=== PATIENT | female | born 1980 | race Caucasian/White ===

== ENCOUNTER 2017-05-19 16:34 | Emergency (ER) | payer MEDICAID, SELFPAY ==
[2017-05-19 16:36] VITALS: BP 158/91; PULSE 94; RESP 20; TEMP 36.9; O2SAT 99; BMI 23.3
--- NOTE | 2017-05-19 19:11 | ED.DCSUM_ITS ---
- ER Visit Summary Date of Service: 05/19/17 Chief Complaint: Panic attack and anxiety History of Present Illness: The patient is a 37 F presents with 3 days of anxiety. She states that she recently had a court date. Since that time she has been feeling exhausted but is having difficulty sleeping shouting out at night. She also complains of some chest tightness. She does have a history of prior similar symptoms. No recent medical illness. Physical Examination: Afebrile vitals are normal Moist mucous membranes Heart regular rate and rhythm Lungs are clear Abdomen soft Alert Patient has pressured speech Patient is not actively suicidal she does not feel she is at risk of harming herself she has no homicidal ideation Test Results: Not indicated Emergency Department Course and Treatment: Does not mandate any criteria for involuntary psychiatric hospitalization. I did advise that I feel she would benefit from seeing the counseling center to learn coping mechanisms and for therapy. The patient does not believe that this will help her and states that she just wants a prescription for medications. She was given a prescription for Vistaril but I again advised that she follow-up with the counseling center. Treatment Plan: [] Disposition: Discharge Impression: Anxiety This note was generated with [employer] dictation software. It may contain incorrect words, spelling, and punctuation that were not noted in review of the chart prior to signing ED Disposition - Plan for ED Patient: Chief Complaint: Anxiety Referrals: [facility],Out of [Primary Care Provider] -
--- NOTE | 2017-05-19 19:12 | ED.DEP ---
ED Disposition - Plan for ED Patient: Chief Complaint: Anxiety Instructions: ED Stress React, ED Panic Attack Prescriptions: HydrOXYzine BUZZ [Vistaril] 50 mg PO TID PRN PRN #30 cap PRN Reason: Anxiety Referrals: [facility],Out of [Primary Care Provider] - Counseling,Center [GROUP OF PHYSICIANS] -
[2017-05-19 19:20] VITALS: BP 112/67; PULSE 71; RESP 16; O2SAT 98
== END 2017-05-19 19:28 | disposition home or self-care (01) ==
LOC: ED 19:19
PROVIDERS: Emergency Provider Emergency Medicine
DX: F41.9 Anxiety disorder, unspecified (principal); I10 Essential (primary) hypertension; Z79.899 Other long term (current) drug therapy
CPT/HCPCS: 99282

== ENCOUNTER 2017-05-23 00:31 | Emergency (ER) | payer MEDICAID, SELFPAY ==
[2017-05-23 00:33] VITALS: BP 162/106; PULSE 99; RESP 18; TEMP 36.6; O2SAT 98; BMI 24.2
--- NOTE | 2017-05-23 01:13 | ED.DCSUM_ITS ---
- ER Visit Summary Date of Service: 05/23/17 Chief Complaint: Tripped and fell with bilateral knee abrasions. History of Present Illness: The patient is a 37 F states that she tripped and fell outside Wednesday night. Has abrasions to both knees. Is able to walk. Denies other injuries. Did not hit her head. She has never had surgeries to either knee. Physical Examination: Well-appearing young female. Vital signs are stable and afebrile. HEENT exam atraumatic. Pupils round reactive light. Neck nontender. Back nontender. Lungs clear to auscultation bilaterally. Heart regular rate and rhythm no murmur. Chest nontender. Abdomen soft nontender. Pelvic girdle intact. Extremities she is moving all 4. They are neurovascularly intact. Full range of motion. No bony deformities. Bilateral centrifugal machine tender strength. Bilateral dorsi plantar flexion. She has full flexion- extension of both knees. Extensor mechanisms are intact. She has abrasions to both knees and minimal swelling. There are no gross bony deformities. There are no signs of internal derangement. The ligaments of the knee are intact with good endpoints. Logic exam is normal. Test Results: None Emergency Department Course and Treatment: She will be treated for knee contusions and abrasions. Treatment Plan: Both knees well be cleaned and dressed. Motrin for pain. Ice both knees. Disposition: Discharge Impression: Fall with bilateral knee abrasions and contusions This note was generated with [employer] dictation software. It may contain incorrect words, spelling, and punctuation that were not noted in review of the chart prior to signing ED Disposition - Plan for ED Patient: Chief Complaint: Lower Extremity Injury Referrals: [facility] ,Out of [Primary Care Provider] -
--- NOTE | 2017-05-23 01:13 | ED.DEP ---
ED Disposition - Plan for ED Patient: Disposition: Home or Assisted Living Chief Complaint: Lower Extremity Injury Instructions: ED Contusion Lower Ext Referrals: [facility],Out of [Primary Care Provider] - 1 Week if not improving Additional Instructions: Ice to both knees to decrease pain and swelling. Motrin and Tylenol for pain. Keep the wounds clean and apply antibiotic ointment daily.
[2017-05-23] MEDS: Ibuprofen 400 MG Tablet 800 MG PO (01:25)
== END 2017-05-23 01:26 | disposition home or self-care (01) ==
PROVIDERS: Emergency Provider Emergency Medicine
DX: S80.212A Abrasion, left knee, initial encounter (principal); S80.211A Abrasion, right knee, initial encounter; S80.02XA Contusion of left knee, initial encounter; S80.01XA Contusion of right knee, initial encounter; W01.0XXA Fall on same level from slipping, tripping and stumbling without subsequent striking against object, initial encounter; Y93.9 Activity, unspecified; Y92.9 Unspecified place or not applicable; I10 Essential (primary) hypertension; Z86.59 Personal history of other mental and behavioral disorders; Z79.899 Other long term (current) drug therapy
CPT/HCPCS: 99283

== ENCOUNTER 2017-12-29 14:12 | Emergency (ER) | payer MEDICAID, SELFPAY ==
[2017-12-29 14:13] VITALS: BP 117/79; PULSE 127; RESP 16; TEMP 36.9; O2SAT 99; BMI 18.8
[2017-12-29] MEDS: Naproxen 500 MG Tablet PO (14:42)
--- NOTE | 2017-12-29 14:42 | ED.VISSUMM ---
- ER Visit Summary Date of Service: 12/29/17 Chief Complaint: [] Pain to the left lower quadrant for a few days after sleeping awkwardly on multiple pillows History of Present Illness: The patient is a 37 F [] she indicates the other day she stepped awkwardly on multiple pillows she indicates she was actually up quite a bit pillows behind her she indicates she turned in the bed torquing her body and since that time has had pain to the left lower abdomen musculature. She indicates the pain is much worse if he tries to move her left leg in any way primarily flexing and extending at the hip. She suffered no direct trauma. She actually denies abdominal pain rather points to the superficial musculature complaining of discomfort here. She was not sick in any way before this episode occurred as above. Her bowel bladder habits have been generally unremarkable other than noting slightly constipated her urinary habits are normal she has no GI history denies being as she has not had sexual intercourse for over a year she has no other complaints. She sits perfectly still she feels better vascular move her leg she has increasing pain to the left lower abdomen Physical Examination: [] Her vital signs are within normal limits she is resting comforting the bed however any movement of the leg she bends forward with her torso because her pain in the left lower abdominal region musculature. When she is lying flat Her left lower abdomen there is no pain the abdomen is actually soft and nontender, there is no bruising or contusion to any part of her body, her back is unremarkable her lungs are clear heart tones are normal she has full range of motion of all 4 extremities. When I range her hip she has no specific hip pain just complains of pain to the musculature as above. When she stands and walks she is able to walk when she flexes her hip she complains of pain to this area Test Results: [] Emergency Department Course and Treatment: [] A long conversation with the patient reviewed her history and differential diagnosis of explained her that given her complaints and her history and physical this is likely musculoskeletal strain I explained we could do a workup with labs CT etc. she deferred that saying again she is quite convinced this is related to musculoskeletal strain related to the above history. At this time she will be started on Naprosyn ice the area and she has an appointment your physicians tomorrow and will return for change in symptoms Treatment Plan: [] Disposition: [] Home stable Impression: [] Lower abdominal musculature strain related to sleeping awkwardly on multiple pillows as above This note was generated with [employer] dictation software. It may contain incorrect words, spelling, and punctuation that were not noted in review of the chart prior to signing ED Disposition - Plan for ED Patient: Chief Complaint: Lower Extremity Injury Referrals: [facility] Doctor,Out of [Primary Care Provider] -
--- NOTE | 2017-12-29 14:45 | ED.DEP ---
ED Disposition - Plan for ED Patient: Chief Complaint: Lower Extremity Injury Instructions: ED Contusion Hip, ED Contusion Soft Tissue Prescriptions: Naproxen [Naprosyn] 500 mg PO BID PRN #20 tab Referrals: [facility],Out of [Primary Care Provider] -
== END 2017-12-29 15:03 | disposition home or self-care (01) ==
LOC: ED 14:57
PROVIDERS: Emergency Provider Emergency Medicine
DX: S39.011A Strain of muscle, fascia and tendon of abdomen, initial encounter (principal); X50.1XXA Overexertion from prolonged static or awkward postures, initial encounter; Y93.9 Activity, unspecified; Y92.9 Unspecified place or not applicable; K59.00 Constipation, unspecified
CPT/HCPCS: 99283

== ENCOUNTER 2018-01-06 14:31 | Observation (INO) | payer MEDICAID, SELFPAY ==
[2018-01-06] VITALS (8 sets, daily range): BP systolic 118–133; BP diastolic 63–94; PULSE 97–122; RESP 16–20; TEMP 36.6–37.2; O2SAT 98–100; BMI 20.9
--- NOTE | 2018-01-06 15:17 | VDLE_ITS ---
[id number] VL^VDUL^Venous Duplex US- Unilateral [id number] [facility] Venous Doppler [address] [place] [address] Ordering Physician: Danny Alexandra TAG_ENDED [facility] Name: TATYANA FRANCISCO I Study Date: 01/06/2018 03:35 PM Patient Location: ED : 1980 Gender: Female Age: 37 yrs [facility]ENDED Reason For Study: LEG PAIN AND SWELLING RIGHT LEFT CFV is compressible, spontaneous, phasic, GSV is normal. competent and demonstrates normal CFV, FV, POP V, T/P trunk, PTV and PER V are augmentation. dilated and non-compressible with Procedure intraluminal echoes and absent color Exam performed portable in ED. flow/doppler signal. A preliminary report was called and/or faxed to Dr. Alexandra. <> Interpretation Summary Acute deep vein thrombosis is noted in the left common femoral vein. Acute deep vein thrombosis is noted in the left femoral vein. Acute deep vein thrombosis is noted in the left popliteal vein. Acute deep vein thrombosis is noted in the left tibio-peroneal trunk. Acute deep vein thrombosis is noted in the left posterior tibial vein. Acute deep vein thrombosis is noted in the left peroneal vein. The left greater saphenous vein appears patent and compressible segmentally. [facility] Ordering Physician: Danny Alexandra Performed By: Sharlene Alvarez RVT
--- NOTE | 2018-01-06 15:18 | EKG12_ITS ---
Test Reason : Blood Pressure : / mmHG Vent. Rate : 106 BPM Atrial Rate : 106 BPM P-R Int : 136 ms QRS Dur : 072 ms QT Int : 324 ms P-R-T Axes : 057 009 018 degrees QTc Int : 430 ms Sinus tachycardia Otherwise normal ECG Confirmed by JUAN DUARTE ([id number]), electronic news gathering editor WAN MELARA ([id number]) on 01/11/2018 8:56:39 AM Referred By: MARIANA Confirmed By:JUAN DUARTE
--- NOTE | 2018-01-06 15:56 | CT_ITS ---
STUDY: CTA CHEST REASON FOR EXAM: Female, 37 years old. Shortness of breath. Leg edema and pain. RADIATION DOSAGE (If Supplied By Facility): CTDIvol = ( 4.57 ) mGy, DLP = ( 175.48 ) mGycm TECHNIQUE: The examination was performed with the intravenous administration of 100mL ml of Isovue 370 contrast material. Post-processing of the angiographic/MIP images was performed. Individualized dose optimization techniques were used for this CT. COMPARISON: None. FINDINGS: Normal enhancement of the main pulmonary artery and right and left pulmonary arteries. Normal enhancement of the bilateral peripheral pulmonary arteries. There is no demonstrated pulmonary embolism. Normal thoracic aorta and visualized great vessels. There is no demonstrated aortic dissection. Normal heart and pericardium. There is no pericardial or pleural effusion. Normal mediastinum. Normal hilar regions. Normal visualized trachea and bronchi. The lungs are well expanded. Normal pulmonary parenchyma. Normal pleura. There are benign bilateral axillary lymph nodes. Normal osseous structures. No acute abnormality demonstrated in the visualized upper abdomen. Possible hepatic steatosis. CT/CTA Chest W/WO Contrast IMPRESSION: Normal CTA chest examination, without a demonstrated pulmonary embolism or arterial dissection. Electronically Signed: Taras Vivas MD at 16:45 EDT Tel , Service support ,
[2018-01-06 15:59] LABS: Absolute Lymphocyte Count 2.34 X10^3/ul (0.83-4.51); Absolute Neutrophil Count 7.3 X10^3/uL (2.0-7.7); Anion Gap 6 (5-15); BUN 17 mg/dL (7-18); BUN/Creat Ratio 27.2 RATIO (10-20); Basophil# 0.03 X10^3/uL; Basophil% 0.3 % (0-1); Calcium,Total 9.1 mg/dL (8.5-10.1); Chloride 106 mmol/L (98-107); Creatinine, Serum 0.63 mg/dL (0.55-1.02); EST Glomerular Filtration Rate 114 mL/min (>60); Eosinophil# 0.32 X10^3/uL; Est Glom Filt Rate - Afr Amer 137 mL/min (>60); Estimated Creatinine Clearance 120.63 ml/min; Glucose 88 mg/dL (74-106); Hematocrit 33.6 % (37-47); Hemoglobin 10.6 g/dl (12.0-15.0); Lymphocyte # 2.34 X10^3/ul (4.0); Lymphocyte % 21.9 % (19-41); Mean Corp Hgb Conc 31.5 g/gl (32-36); Mean Corpuscular Hgb 29.6 pg (27.0-32.0); Mean Corpuscular Volume 93.9 fL (81-99); Mean Platelet Vol. 8.8 fl (6.2-12.0); Monocyte# 0.63 X10^3/uL; Monocyte% 5.9 % (0-10); Neutrophil # 7.32 X10^3/uL (2.7-7.7); Neutrophil % 68.3 % (47-70); Platelet Count 580 K/mm3 (150-450); Potassium 4.4 mmol/L (3.5-5.1); RBC Distribution Width CV 11.9 % (11.6-14.6); RBC Distribution Width SD 39.3 fl (35.1-43.9); Red Blood Count 3.58 M/mm3 (4.2-5.4); Sodium Level 140 mmol/L (136-145); White Blood Count 10.7 K/mm3 (4.4-11.0)
[2018-01-06 16:00] LABS: POSITIVE COUNT NO; POSITIVE DIFFERENTIAL NO; POSITIVE MORPHOLOGY NO
[2018-01-06 16:03] LABS: Prothrombin Time (Protime)PT. 13.3 SECONDS (11.7-14.9)
--- NOTE | 2018-01-06 17:03 | ED.VISSUMM ---
- ER Visit Summary Date of Service: 01/06/18 Chief Complaint: Left leg swelling History of Present Illness: The patient is a 37 F who presents with left leg swelling. It began 4 days ago. She was initially seen here for left hip and groin pain. This is been attributed to the fact that she was sleeping in an abnormal position. She was started on naproxen which is helping. However over the last 4 days she has developed significant swelling of the left leg only. She denies any recent travel or surgery no history of DVT or pulmonary embolism she is not a smoker she has however on her oral contraceptive. She denies any chest pain or shortness of breath. Physical Examination: Heart rate 172 vitals otherwise normal Moist mucous membranes Heart regular rhythm tachycardia Lungs are clear Abdomen soft Active full range of motion without pain of the left lower extremity she does have calf tenderness she has asymmetric edema 2-3+ on the left leg with no edema on the right she has palpable distal pulses with brisk capillary refill normal sensation skin is warm and dry she does not have pallor or rubor Test Results: EKG shows sinus rhythm at a rate of 106. Labs notable for hemoglobin 10.6. INR normal. CTA of the chest is normal. Venous duplex shows extensive DVT from groin to ankle. Emergency Department Course and Treatment: Patient has extensive DVT. She was given subcutaneous Lovenox. She does not have signs currently of phlegmasia alba Alvin's or phlegmasia cerulea dolens. However she would be at risk for this. Therefore felt she should be placed in hospital observation for anticoagulation and possible vascular consultation. Treatment Plan: [] Disposition: Admit Impression: DVT This note was generated with [employer] dictation software. It may contain incorrect words, spelling, and punctuation that were not noted in review of the chart prior to signing ED Disposition - Plan for ED Patient: Chief Complaint: Edema Referrals: [facility] Doctor,Out of [Primary Care Provider] -
--- NOTE | 2018-01-06 17:06 | ED.DCSUM_ITS ---
- ER Visit Summary Date of Service: 01/06/18 Chief Complaint: Left leg swelling History of Present Illness: The patient is a 37 F who presents with left leg swelling. It began 4 days ago. She was initially seen here for left hip and groin pain. This is been attributed to the fact that she was sleeping in an abnormal position. She was started on naproxen which is helping. However over the last 4 days she has developed significant swelling of the left leg only. She denies any recent travel or surgery no history of DVT or pulmonary embolism she is not a smoker she has however on her oral contraceptive. She denies any chest pain or shortness of breath. Physical Examination: Heart rate 172 vitals otherwise normal Moist mucous membranes Heart regular rhythm tachycardia Lungs are clear Abdomen soft Active full range of motion without pain of the left lower extremity she does have calf tenderness she has asymmetric edema 2-3+ on the left leg with no edema on the right she has palpable distal pulses with brisk capillary refill normal sensation skin is warm and dry she does not have pallor or rubor Test Results: EKG shows sinus rhythm at a rate of 106. Labs notable for hemoglobin 10.6. INR normal. CTA of the chest is normal. Venous duplex shows extensive DVT from groin to ankle. Emergency Department Course and Treatment: Patient has extensive DVT. She was given subcutaneous Lovenox. She does not have signs currently of phlegmasia alba Alvin's or phlegmasia cerulea dolens. However she would be at risk for this. Therefore felt she should be placed in hospital observation for anticoagulation and possible vascular consultation. Treatment Plan: [] Disposition: Admit Impression: DVT This note was generated with [employer] dictation software. It may contain incorrect words, spelling, and punctuation that were not noted in review of the chart prior to signing ED Disposition - Plan for ED Patient: Chief Complaint: Edema Referrals: [facility] Doctor,Out of [Primary Care Provider] -
[2018-01-06] MEDS: Enoxaparin 60 MG/0.6 ML Syringe SC (17:12)
--- NOTE | 2018-01-06 17:42 | HP.PCM_ITS ---
<Yumiko Bhatti - Last Filed: 01/06/18 17:51> Problem List (1) Exacerbation of reactive airway disease Status: Resolved (2) Muscle spasms of neck Status: Resolved (3) Allergic rhinitis Status: Chronic Comment: ENT referral (4) Cough Status: Chronic Comment: Encourage Flonase for cough control and PND if symptoms worsen or return, reviewed PFT no further testing at this time. Ordered chest Xray today to follow up on mild restriction seen on PFT. My continue follow up with CT chest, not a priority at this time given lack of chest Xray for in initial eval and actual symptom improvement prior to todays visit. Follow up with Dr Messer in 6 months. Added rescue inhaler. (5) Hypertension Status: Chronic (6) Depression Status: Chronic (7) Anxiety Status: Chronic History of Present Illness Date of Admission: 01/06/18 Chief Complaint: Left lower extremity pain and swelling. The patient is a 37 year old F who presents emergency room due to left lower extremity swelling and pain. Patient reports she initially presented to ER about a week ago with left groin pain/left hip pain. She was started on naproxen at that time. She reports improvement of left groin and hip pain. However, in the past 3-4 days she has developed swelling of the left lower extremity with associated redness and warmth. She denies history of DVT. Denies recent travel. She is on oral contraceptives. She denies smoking history. She states she has been depressed recently due to stress at home and has been laying around a lot. She reports she has been significantly more immobile than normal. She does report a family history of factor V Leiden deficiency including her mother and aunt. She denies chest pain, shortness of breath. She has a past medical history of anxiety, depression, hypertension, chronic cough, allergic rhinitis. Past Medical History Past Medical History (Chronic Problems): Chronic Problems (Last Reviewed 05/10/17 @ 15:46 by Jolie Salazar) Hypertension (Chronic) Depression (Chronic) Anxiety (Chronic) Allergic rhinitis (Chronic) ENT referral Cough (Chronic) Encourage Flonase for cough control and PND if symptoms worsen or return, reviewed PFT no further testing at this time. Ordered chest Xray today to follow up on mild restriction seen on PFT. My continue follow up with CT chest, not a priority at this time given lack of chest Xray for in initial eval and actual symptom improvement prior to todays visit. Follow up with Dr Messer in 6 months. Added rescue inhaler. Medical History: Medical History (Last Reviewed 05/10/17 @ 15:46 by Jolie Salazar) Allergic rhinitis (Chronic) J30.9 ENT referral Cough (Chronic) R05 Encourage Flonase for cough control and PND if symptoms worsen or return, reviewed PFT no further testing at this time. Ordered chest Xray today to follow up on mild restriction seen on PFT. My continue follow up with CT chest, not a priority at this time given lack of chest Xray for in initial eval and actual symptom improvement prior to todays visit. Follow up with Dr Messer in 6 months. Added rescue inhaler. Exacerbation of reactive airway disease (Resolved) J45.901 Muscle spasms of neck (Resolved) M62.838 Allergies MEAT PRODUCTS Adverse Reaction (Uncoded 12/29/17 14:42) Other Home Medications: Ambulatory Orders Medication Instructions Recorded albuterol sulfate HFA 90 2 puff INHALATION Q6H #8.5 g 02/16/17 mcg/actuation aerosol inhaler bupropion HCl XL 300 mg 24 hr 300 mg PO QAM 02/16/17 tablet, extended release metoprolol tartrate 100 mg tablet 100 mg PO QDAY 02/16/17 Escitalopram Oxalate [Lexapro] 10 mg PO DAILY 12/29/17 Naproxen [Naprosyn] 500 mg PO BID PRN #20 tab 12/29/17 Ethinyl Estradiol/Drospirenone 1 tab PO DAILY 01/06/18 [Ocella 3 mg-0.03 mg Tablet] Surgical History: no surgical history Psychiatric History: Anxiety, Depression ORACLE SCM CONSULTANT History: No pertinent ORACLE SCM CONSULTANT history Lives: With Family Smoking Status: Never smoker Tobacco Use: Non-smoker Alcohol: Rare Drugs: None - *Family History Maternal Family History: Family History (Last Reviewed 01/06/18 @ 17:43 by RANDY Rogers) Father Diabetes Hypertension CAD (coronary artery disease) Heart disease History Items: - - Maternal-Factor V Leiden deficiency Paternal Family History: Family History (Last Reviewed 01/06/18 @ 17:43 by RANDY Rogers) Father Diabetes Hypertension CAD (coronary artery disease) Heart disease Review of Systems Constitutional: Denies: Chills, Fever, Weight Change HEENT: Denies: Head Aches, Sinus Congestion, Sinus Drainage Cardiovascular: Reports: Edema - Left lower extremity. Denies: Chest Pain, Palpitations Respiratory: Denies: Cough, Shortness of breath at rest, Sputum production Gastrointestinal: Denies: Abdominal Pain, Nausea, Vomiting Genitourinary: Denies: Dysuria Musculoskeletal: Reports: Leg Pain - Left leg. Denies: Joint Pain, Joint Tenderness Skin: Reports: - - Left leg redness. Denies: Rash, Wounds Neurological: Denies: Numbness, Tingling, Focal weakness Psychiatric: Reports: Anxiety, Depression Hematologic/ Lymphatic: Denies: Easy Bruising, Easy Bleeding VTE Information - Inpt Only VTE Present on Admission: Yes VTE Mechan Device Prophylaxis: None VTE Pharm Prophylaxis ordered?: Yes - Physical Exam General: Alert, Oriented x3, Cooperative, - - Appears anxious HEENT: Atraumatic, PERRLA, EOMI, Normocephalic Neck: Supple, No JVD, Negative Carotid Bruits Lungs: Clear to auscultation, Normal air movement Cardiovascular: Regular Rhythm, Normal S1, Normal S2, No murmurs, Tachycardic Abdomen: Bowel Sounds Present, Soft, Non Tender, Non-Distended Extremities: No clubbing, No cyanosis, Edema - Left lower extremity from ankle to upper thigh Skin: No rashes, No breakdown, - - Left lower extremity redness and warmth Musculoskeletal: Tenderness - Left lower extremity Neurological: Cranial nerves II-XII grossly intact, Neuro grossly intact Psych/Mental Status: Agitated Vital Signs Temp Pulse Resp BP Pulse Ox 97.9 F 122 H 16 127/94 H 100 01/06/18 14:31 01/06/18 14:31 01/06/18 14:31 01/06/18 14:31 01/06/18 14:31 Oxygen Delivery Method Room Air Weight: 137 lb 12.623 oz Body Mass Index (BMI) 20.9 Laboratory Tests Past 24 Hrs 01/06/18 01/06/18 01/06/18 15:30 15:30 15:30 WBC 10.7 RBC 3.58 L Hgb 10.6 L Hct 33.6 L MCV 93.9 MCH 29.6 MCHC 31.5 L RDW 11.9 RDW Differential 39.3 Plt Count 580 H MPV 8.8 Immature Gran % (Auto) 0.600 Neut % (Auto) 68.3 Lymph % (Auto) 21.9 [place] % (Auto) 5.9 Eos % (Auto) 3.0 Baso % (Auto) 0.3 Absolute Neuts (auto) 7.3 Absolute Lymphs (auto) 2.34 Total Counted Not Reportable PT 13.3 INR 1.0 Sodium 140 Potassium 4.4 Chloride 106 Carbon Dioxide 28.0 Anion Gap 6 BUN 17 Creatinine 0.63 Estim Creat Clear Calc 120.63 Est GFR (MDRD) Af Amer 137 Est GFR (MDRD) Non-Af 114 BUN/Creatinine Ratio 27.2 H Glucose 88 Calcium 9.1 Assessment/Plan All Active Problems (Last Reviewed 05/10/17 @ 15:46 by Jolie Salazar) Exacerbation of reactive airway disease (Resolved) Muscle spasms of neck (Resolved) 1. Acute left lower extremity DVT-left lower extremity ultrasound shows extensive DVT from groin to ankle. Received x1 therapeutic Lovenox subcu in ER. Consult vascular. Hold on anticoagulation orally until further evaluated by vascular. Recommend Eliquis at discharge. Patient reports strong family history of factor V Leiden. She is also on oral contraceptive and reports recent increased immobility due to depression. Patient will likely require lifelong anticoagulation given family history of factor V Leiden in both her mother and aunt. CT of chest negative for PE. 2. Mild tachycardia-CT of chest negative for PE. Suspect secondary to anxiety. Continue home metoprolol regimen. 3. Anxiety/depression-continue home bupropion, Lexapro regimen. Recommend continued outpatient therapy. 4. Hypertension-stable, continue home metoprolol regimen. 5. Chronic cough/allergic rhinitis-follows with pulmonary medicine as outpatient. Albuterol inhaler as needed. DVT prophylaxis-therapeutic Lovenox with transition to Eliquis at discharge. This patient was seen by RANDY Rogers under the supervision of Dr. Pratt. <Susannah Pratt - Last Filed: 01/06/18 20:56> History of Present Illness The patient is a 37 year old F [] Past Medical History Medical History: Medical History (Last Reviewed 05/10/17 @ 15:46 by Jolie Salazar) Allergic rhinitis (Chronic) J30.9 ENT referral Cough (Chronic) R05 Encourage Flonase for cough control and PND if symptoms worsen or return, reviewed PFT no further testing at this time. Ordered chest Xray today to follow up on mild restriction seen on PFT. My continue follow up with CT chest, not a priority at this time given lack of chest Xray for in initial eval and actual symptom improvement prior to todays visit. Follow up with Dr Messer in 6 months. Added rescue inhaler. Exacerbation of reactive airway disease (Resolved) J45.901 Muscle spasms of neck (Resolved) M62.838 Allergies MEAT PRODUCTS Adverse Reaction (Uncoded 12/29/17 14:42) Other - *Family History Maternal Family History: Family History (Last Reviewed 01/06/18 @ 17:43 by Yumiko Bhatti NP-C) Father Diabetes Hypertension CAD (coronary artery disease) Heart disease Paternal Family History: Family History (Last Reviewed 01/06/18 @ 17:43 by MATT RogersC) Father Diabetes Hypertension CAD (coronary artery disease) Heart disease - Physical Exam Vital Signs Temp Pulse Resp BP Pulse Ox 98.9 F 113 H 20 H 133/87 H 100 01/06/18 19:25 01/06/18 19:25 01/06/18 19:25 01/06/18 19:25 01/06/18 19:25 Oxygen Delivery Method Room Air Weight: 137 lb 5.568 oz Body Mass Index (BMI) 20.9 Laboratory Tests Past 24 Hrs 01/06/18 01/06/18 01/06/18 15:30 15:30 15:30 WBC 10.7 RBC 3.58 L Hgb 10.6 L Hct 33.6 L MCV 93.9 MCH 29.6 MCHC 31.5 L RDW 11.9 RDW Differential 39.3 Plt Count 580 H MPV 8.8 Immature Gran % (Auto) 0.600 Neut % (Auto) 68.3 Lymph % (Auto) 21.9 [place] % (Auto) 5.9 Eos % (Auto) 3.0 Baso % (Auto) 0.3 Absolute Neuts (auto) 7.3 Absolute Lymphs (auto) 2.34 Total Counted Not Reportable PT 13.3 INR 1.0 Sodium 140 Potassium 4.4 Chloride 106 Carbon Dioxide 28.0 Anion Gap 6 BUN 17 Creatinine 0.63 Estim Creat Clear Calc 120.63 Est GFR (MDRD) Af Amer 137 Est GFR (MDRD) Non-Af 114 BUN/Creatinine Ratio 27.2 H Glucose 88 Calcium 9.1 Assessment/Plan Patient seen by Yumiko PADILLA under my supervision. Patient is a 37-year-old female admitted with a complaint of left lower extremity swelling and pain about a week's duration. She admitted to be recumbent in bed because she had hurt her hip from a position that she slept in bed. Duplex of lower extremity showed acute left lower extremity DVT extending from the groin to the ankle. She does have a family history of factor V Leiden deficiency with her mother and his sister and aunt having numerous clots. She is also on oral contraceptive. Vitals were significant for pulse rate of 113 and respiratory rate of 20. CT Nadia Stiles was negative for any PE. CBC significant for hemoglobin of 10.6. o/e: Vital Signs Height 5 ft 8 in Weight: 137 lb 5.568 oz Weight in Pounds 137.3 lbs Pulse Ox 100 Temperature 98.9 F Pulse Rate 113 Respiratory Rate 20 Blood Pressure 133/87 Blood Pressure Position Semi-Fowlers General: Alert, Oriented x3, Cooperative, HEENT: Atraumatic, PERRLA, EOMI, Normocephalic Neck: Supple, No JVD, Negative Carotid Bruits Lungs: Clear to auscultation, Normal air movement Cardiovascular: Regular Rhythm, Normal S1, Normal S2, No murmurs, Tachycardic Abdomen: Bowel Sounds Present, Soft, Non Tender, Non-Distended Extremities: No clubbing, No cyanosis, LLE edema extending from ankle to groin, with mild calf tenderness. Minimal bluish tinge to LLE. Skin: No rashes, No breakdown, - - Left lower extremity redness and warmth Musculoskeletal: Tenderness - Left lower extremity Neurological: Cranial nerves II-XII grossly intact, Neuro grossly intact Psych/Mental Status: Agitated Patient is being admitted to PCU to be managed for acute lower extremity DVT. Patient received a dose of Lovenox in the ED. Will give another dose of Lovenox in the morning. Will consult vascular surgery due to heavy clot burden. Patient will likely need lifelong anticoagulation. In light of acute DVT, we will not do coagulation panel now. Can be done about 6 months after anticoagulation on outpatient basis. To stop oral contraceptive. Will transition to oral anticoagulation after reviewed by vascular surgery. Agree with rest of Yumiko Bhatti SKIFF OPERATOR C's note. Rest of management as per Pinky Bhatti SKIFF OPERATOR C's note Code Visit OBSV E&M: 05108 Initial observation care L2
[2018-01-06] MEDS: Metoprolol Tartrate 100 MG Tablet PO (22:43)
[2018-01-06] MEDS: oxyCODONE 5 MG Tablet PO (22:47)
[2018-01-07] MEDS: 0.9% NaCl Peripheral Flush Adult/Peds IV (00:29)
[2018-01-07 00:30] VITALS: BP 95/63; PULSE 84; RESP 16; TEMP 37; O2SAT 98
[2018-01-07 03:00] VITALS: PULSE 79
[2018-01-07 04:00] VITALS: BP 103/74; PULSE 89; RESP 16; TEMP 36.7; O2SAT 100
[2018-01-07] MEDS: Enoxaparin 60 MG/0.6 ML Syringe SC (05:08)
--- NOTE | 2018-01-07 06:13 | PCM.PN.BLA ---
Progress Note Consult declined as I do not have useful knowledge for the question poised to provide expert advise. Juancho
[2018-01-07] MEDS: oxyCODONE 5 MG Tablet PO (06:26)
[2018-01-07 07:24] VITALS: PULSE 89
[2018-01-07 07:46] LABS: Hematocrit 31.4 % (37-47); Hemoglobin 9.8 g/dl (12.0-15.0); Mean Corp Hgb Conc 31.2 g/gl (32-36); Mean Corpuscular Hgb 29.5 pg (27.0-32.0); Mean Corpuscular Volume 94.6 fL (81-99); Mean Platelet Vol. 8.8 fl (6.2-12.0); Platelet Count 557 K/mm3 (150-450); RBC Distribution Width SD 39.8 fl (35.1-43.9); Red Blood Count 3.32 M/mm3 (4.2-5.4); White Blood Count 9.8 K/mm3 (4.4-11.0)
[2018-01-07 07:59] LABS: Scan Indicated on CBC? Y/N NO
[2018-01-07 08:11] LABS: Anion Gap 7 (5-15); BUN 17 mg/dL (7-18); BUN/Creat Ratio 26.9 RATIO (10-20); Calcium,Total 8.8 mg/dL (8.5-10.1); Chloride 107 mmol/L (98-107); Creatinine, Serum 0.63 mg/dL (0.55-1.02); EST Glomerular Filtration Rate 112 mL/min (>60); Est Glom Filt Rate - Afr Amer 136 mL/min (>60); Estimated Creatinine Clearance 120.25 ml/min; Glucose 104 mg/dL (74-106); Potassium 3.8 mmol/L (3.5-5.1); Sodium Level 140 mmol/L (136-145)
[2018-01-07 10:15] VITALS: BP 110/74; PULSE 92; RESP 18; TEMP 36.9; O2SAT 99
[2018-01-07] MEDS: Escitalopram Oxalate 10 MG Tablet PO (10:30)
[2018-01-07] MEDS: buPROPion (XL) 300 MG TABLET.XL PO (10:30)
--- NOTE | 2018-01-07 10:38 | PCM.WORK.EX ---
Work/School Excuse Work/School Excuse for:: Patient Please excuse this person from:: Work From: 01/06/18 through: 01/14/18 Restrictions: Other - Activity as tolerated
--- NOTE | 2018-01-07 10:40 | PCM.DC ---
- Discharge Diagnoses Current Active Problems: Current Active and Chronic Problems (Last Reviewed 05/10/17 @ 15:46 by Jolie Salazar) Hypertension (Chronic) Depression (Chronic) Anxiety (Chronic) You will use the following diet at home:: No restrictions Discharge Activity: Return to Normal Activity Call your doctor if you observe: Shortness of breath, Chest pain, Uncontrolled pain Additional Instructions: You will take Xarelto 15mg twice daily for 21 days followed by Xarelto 20mg daily. Ambulation and activities of daily living are safe at discharge. Avoid agressive forms of exercise until further evaluated by primary care physician. Gradually increase exercise as tolerated. Discontinue use of oral contraceptives until further follow up with hematology. Allergies/Adverse Reactions: Allergies MEAT PRODUCTS Adverse Reaction (Uncoded 12/29/17 14:42) Other Medications to take at Discharge albuterol sulfate HFA 90 mcg/actuation aerosol inhaler 2 puff INHALATION Q6H #8.5 g 02/16/17 bupropion HCl XL 300 mg 24 hr tablet, extended release 300 mg PO QAM 02/16/17 metoprolol tartrate 100 mg tablet 100 mg PO QDAY 02/16/17 Escitalopram Oxalate [Lexapro] 10 mg PO DAILY 12/29/17 Oxycodone [Oxyir] 5 mg PO Q4H PRN PRN 2 Days #10 tablet 01/07/18 Rivaroxaban [Xarelto] 15 mg PO BID #42 tablet 01/07/18 The following prescriptions were given: Oxycodone [Oxyir] 5 mg PO Q4H PRN PRN 2 Days #10 tablet PRN Reason: Moderate Pain (pain scale 4-5) Rivaroxaban [Xarelto] 15 mg PO BID #42 tablet Primary Care Physician: [facility] Doctor,Out of [Primary Care Provider] - Please follow up with your Primary Care Physician in: Within 1 Week Test Results: Test results from this visit will be discussed in further detail at your follow-up appointment, if applicable. Please Follow Up With: All Sanchez MD - Hematology When: 2-4 weeks to establish Proposed Discharge Date: 01/07/18
--- NOTE | 2018-01-07 10:46 | DCINST_ITS ---
- Discharge Diagnoses Current Active Problems: Current Active and Chronic Problems (Last Reviewed 05/10/17 @ 15:46 by Jolie Salazar) Hypertension (Chronic) Depression (Chronic) Anxiety (Chronic) You will use the following diet at home:: No restrictions Discharge Activity: Return to Normal Activity Call your doctor if you observe: Shortness of breath, Chest pain, Uncontrolled pain Additional Instructions: You will take Xarelto 15mg twice daily for 21 days followed by Xarelto 20mg daily. Ambulation and activities of daily living are safe at discharge. Avoid agressive forms of exercise until further evaluated by primary care physician. Gradually increase exercise as tolerated. Discontinue use of oral contraceptives until further follow up with hematology. Allergies/Adverse Reactions: Allergies MEAT PRODUCTS Adverse Reaction (Uncoded 12/29/17 14:42) Other Medications to take at Discharge albuterol sulfate HFA 90 mcg/actuation aerosol inhaler 2 puff INHALATION Q6H #8.5 g 02/16/17 bupropion HCl XL 300 mg 24 hr tablet, extended release 300 mg PO QAM 02/16/17 metoprolol tartrate 100 mg tablet 100 mg PO QDAY 02/16/17 Escitalopram Oxalate [Lexapro] 10 mg PO DAILY 12/29/17 Oxycodone [Oxyir] 5 mg PO Q4H PRN PRN 2 Days #10 tablet 01/07/18 Rivaroxaban [Xarelto] 15 mg PO BID #42 tablet 01/07/18 The following prescriptions were given: Oxycodone [Oxyir] 5 mg PO Q4H PRN PRN 2 Days #10 tablet PRN Reason: Moderate Pain (pain scale 4-5) Rivaroxaban [Xarelto] 15 mg PO BID #42 tablet Primary Care Physician: [facility] Doctor,Out of [Primary Care Provider] - Please follow up with your Primary Care Physician in: Within 1 Week Test Results: Test results from this visit will be discussed in further detail at your follow- up appointment, if applicable. Please Follow Up With: All Sanchez MD - Hematology When: 2-4 weeks to establish Proposed Discharge Date: 01/07/18
--- NOTE | 2018-01-07 11:00 | PCM.DC.SUM ---
<Yumiko Bhatti - Last Filed: 01/07/18 11:09> Discharge Date and Diagnosis Date of Admission: 01/06/18 Date of Discharge: 01/07/18 - Primary Discharge Diagnosis 1. Acute left lower extremity DVT - Secondary Discharge Diagnosis Chronic Problems (Last Reviewed 05/10/17 @ 15:46 by Jolie Salazar) Hypertension (Chronic) Depression (Chronic) Anxiety (Chronic) Allergic rhinitis (Chronic) ENT referral Cough (Chronic) Encourage Flonase for cough control and PND if symptoms worsen or return, reviewed PFT no further testing at this time. Ordered chest Xray today to follow up on mild restriction seen on PFT. My continue follow up with CT chest, not a priority at this time given lack of chest Xray for in initial eval and actual symptom improvement prior to todays visit. Follow up with Dr Messer in 6 months. Added rescue inhaler. Hospital Course and Treatment Imaging Results: Diagnostic Data Chest CTA 01/06/18 15:56 IMPRESSION: Normal CTA chest examination, without a demonstrated pulmonary embolism or arterial dissection. Electronically Signed: Taras Vivas MD at 16:45 EDT Tel , Service support , ADDENDUM: 01/06/18 1724 Operations: None Procedures: None Summary of Care Provided: The patient is a 37 year old F admitted 01/06/2018 due to left lower extremity pain and swelling. She has a past medical history of anxiety, depression, hypertension, chronic cough, allergic rhinitis. 1. Acute left lower extremity DVT-left lower extremity ultrasound shows extensive DVT from groin to ankle. Received therapeutic Lovenox subcu during admission. Patient reports strong family history of factor V Leiden. She is also on oral contraceptive and reports recent increased immobility due to depression. Patient will likely require lifelong anticoagulation given family history of factor V Leiden in both her mother and aunt. CT of chest negative for PE. Patient prescribed Xarelto at discharge. She will take Xarelto 15 mg twice daily for 21 days followed by Xarelto 20 mg daily which will further be prescribed by primary care physician. Recommend follow-up with Dr. Sanchez, hematology in 2-4 weeks to establish care. Recommend anti-coagulable panel in 6 months. Follow-up with primary care physician in 1 week. Patient may advance activity as tolerated, encourage ambulation. Stop oral contraceptives until further evaluated by hematology. 2. Mild tachycardia-resolved. CT of chest negative for PE. Suspect secondary to anxiety. Continue home metoprolol regimen. 3. Anxiety/depression-continue home bupropion, Lexapro regimen. Recommend continued outpatient therapy. 4. Hypertension-stable, continue home metoprolol regimen. 5. Chronic cough/allergic rhinitis-follows with pulmonary medicine as outpatient. General: Alert, Oriented x3, Cooperative HEENT: Atraumatic, PERRLA, EOMI, Normocephalic Neck: Supple, No JVD, Negative Carotid Bruits Lungs: Clear to auscultation, Normal air movement Cardiovascular: Regular Rhythm, Normal S1, Normal S2, No murmurs, regular rate Abdomen: Bowel Sounds Present, Soft, Non Tender, Non-Distended Extremities: No clubbing, No cyanosis, Edema - Left lower extremity from ankle to upper thigh Skin: No rashes, No breakdown, - - Left lower extremity redness and warmth Musculoskeletal: Tenderness - Left lower extremity Neurological: Cranial nerves II-XII grossly intact, Neuro grossly intact Psych/Mental Status: Normal affect Patient seen exam prior to discharge. Physical assessment as noted above. Patient is stable for discharge home with the follow-up her conditions as noted above. This patient was seen by RANDY Rogers under the supervision of Dr. Mcmanus. - Physical Exam Vital Signs Temp Pulse Resp BP Pulse Ox 98.5 F 92 18 110/74 99 01/07/18 10:15 01/07/18 10:15 01/07/18 10:15 01/07/18 10:15 01/07/18 10:15 Oxygen Delivery Method Room Air Weight: 137 lb 5.568 oz Body Mass Index (BMI) 20.9 Intake and Output for Last 24 Hours 01/05/18 01/06/18 01/07/18 23:59 23:59 23:59 Intake Total 360 / 360 Balance 360 / 360 Laboratory Tests Past 24 Hrs 01/06/18 01/06/18 01/06/18 15:30 15:30 15:30 WBC 10.7 RBC 3.58 L Hgb 10.6 L Hct 33.6 L MCV 93.9 MCH 29.6 MCHC 31.5 L RDW 11.9 RDW Differential 39.3 Plt Count 580 H MPV 8.8 Immature Gran % (Auto) 0.600 Neut % (Auto) 68.3 Lymph % (Auto) 21.9 [place] % (Auto) 5.9 Eos % (Auto) 3.0 Baso % (Auto) 0.3 Absolute Neuts (auto) 7.3 Absolute Lymphs (auto) 2.34 Total Counted Not Reportable PT 13.3 INR 1.0 Sodium 140 Potassium 4.4 Chloride 106 Carbon Dioxide 28.0 Anion Gap 6 BUN 17 Creatinine 0.63 Estim Creat Clear Calc 120.63 Est GFR (MDRD) Af Amer 137 Est GFR (MDRD) Non-Af 114 BUN/Creatinine Ratio 27.2 H Glucose 88 Calcium 9.1 01/07/18 01/07/18 07:13 07:13 WBC 9.8 RBC 3.32 L Hgb 9.8 L Hct 31.4 L MCV 94.6 MCH 29.5 MCHC 31.2 L RDW 12.0 RDW Differential 39.8 Plt Count 557 H MPV 8.8 Immature Gran % (Auto) Neut % (Auto) Lymph % (Auto) [place] % (Auto) Eos % (Auto) Baso % (Auto) Absolute Neuts (auto) Absolute Lymphs (auto) Total Counted PT INR Sodium 140 Potassium 3.8 Chloride 107 Carbon Dioxide 26.0 Anion Gap 7 BUN 17 Creatinine 0.63 Estim Creat Clear Calc 120.25 Est GFR (MDRD) Af Amer 136 Est GFR (MDRD) Non-Af 112 BUN/Creatinine Ratio 26.9 H Glucose 104 Calcium 8.8 Discharge Diet: No Restrictions Discharge Activity: Return to Normal Activity - As tolerated Call your doctor if you observe: Shortness of breath, Chest pain, Uncontrolled pain Home Medications: Medications to take at Discharge albuterol sulfate HFA 90 mcg/actuation aerosol inhaler 2 puff INHALATION Q6H #8.5 g 02/16/17 bupropion HCl XL 300 mg 24 hr tablet, extended release 300 mg PO QAM 02/16/17 metoprolol tartrate 100 mg tablet 100 mg PO QDAY 02/16/17 Escitalopram Oxalate [Lexapro] 10 mg PO DAILY 12/29/17 Oxycodone [Oxyir] 5 mg PO Q4H PRN PRN 2 Days #10 tablet 01/07/18 Rivaroxaban [Xarelto] 15 mg PO BID #42 tablet 01/07/18 Following Prescrptions Were Given to Patient: Oxycodone [Oxyir] 5 mg PO Q4H PRN PRN 2 Days #10 tablet PRN Reason: Moderate Pain (pain scale 4-5) Rivaroxaban [Xarelto] 15 mg PO BID #42 tablet Primary Care Physician: [facility] Doctor,Out of [Primary Care Provider] - Please follow up with your Primary Care Physician in: Within 1 Week Please Follow Up With: All Sanchez MD - Hematology When: 2-4 weeks to establish Disposition: Home Minutes spent on discharge:: 35 Patient Condition:: Stable Medical Necessity - Tobacco Use Smoking Status: Never smoker Tobacco Use: Non-smoker Meaningful Use Info Meaningful Use Diagnoses (Choose all that apply): VTE - VTE Anticoag overlap given w/in hospital stay or rx'd at dc?: Yes Pt receive overlap for 5 days?: Yes <Reg Mcmanus - Last Filed: 01/07/18 18:59> Discharge Date and Diagnosis - Secondary Discharge Diagnosis Chronic Problems (Last Reviewed 05/10/17 @ 15:46 by Jolie Salazar) Hypertension (Chronic) Depression (Chronic) Anxiety (Chronic) Allergic rhinitis (Chronic) ENT referral Cough (Chronic) Encourage Flonase for cough control and PND if symptoms worsen or return, reviewed PFT no further testing at this time. Ordered chest Xray today to follow up on mild restriction seen on PFT. My continue follow up with CT chest, not a priority at this time given lack of chest Xray for in initial eval and actual symptom improvement prior to todays visit. Follow up with Dr Messer in 6 months. Added rescue inhaler. Hospital Course and Treatment Summary of Care Provided: This patient was seen in conjunction with ENTERPRISE INFRASTRUCTURE ARCHITECT, Yumiko. I have independently interviewed and examined the patient and reviewed pertinent history, examination findings, laboratory and plan of management. I have reviewed the note and agree with the documented findings with the few additional points. In brief, patient is admitted for diffuse and severe left lower extremity pain and swelling secondary to extensive DVT from groin to ankle mostly secondary to OC pills. Patient was started on therapeutic Lovenox transition to Xarelto. On DVT dose as mentioned above. Patient was advised to discontinue oral contraceptive and follow with STAFFING CLERK to transition to different OCP or discontinue it altogether. Follow-up recommended with international travel consultant as mentioned above. Need further workup for hypercoagulable disorder after 3- 4 weeks of completion of anticoagulant treatment for DVT Charge medication reconciliation done. Follow-up instructions completed. I have discussed my assessment with ENTERPRISE INFRASTRUCTURE ARCHITECT, Yumiko and orders have been reviewed. [] Subjective: Diffuse left lower extremity swelling, tender from groin to ankle. - Physical Exam General: Alert, Oriented x3, Cooperative HEENT: Atraumatic, PERRLA, EOMI, Normocephalic Neck: Supple, No JVD, Negative Carotid Bruits Lungs: Clear to auscultation, Normal air movement, No rhonchi, No wheeze, No rales Cardiovascular: Regular rate, Regular Rhythm, Normal S2, No murmurs Abdomen: Bowel Sounds Present, Soft, Non Tender, Non-Distended Extremities: Capillary Refill Less than 3 Seconds, Edema, Tenderness - Diffuse edema of left lower extremity Skin: No rashes, No breakdown Musculoskeletal: No Tenderness to Palpation of Joints or Extremities Neurological: Cranial nerves II-XII grossly intact Psych/Mental Status: Normal Affect, Appropriate Vital Signs Temp Pulse Resp BP Pulse Ox 98.5 F 92 18 110/74 99 01/07/18 10:15 01/07/18 10:15 01/07/18 10:15 01/07/18 10:15 01/07/18 10:15 Oxygen Delivery Method Room Air Weight: 137 lb 5.568 oz Body Mass Index (BMI) 20.9 Intake and Output for Last 24 Hours 01/05/18 01/06/18 01/07/18 23:59 23:59 23:59 Intake Total 1110 / 1110 Balance 1110 / 1110 Laboratory Tests Past 24 Hrs 01/07/18 01/07/18 07:13 07:13 WBC 9.8 RBC 3.32 L Hgb 9.8 L Hct 31.4 L MCV 94.6 MCH 29.5 MCHC 31.2 L RDW 12.0 RDW Differential 39.8 Plt Count 557 H MPV 8.8 Sodium 140 Potassium 3.8 Chloride 107 Carbon Dioxide 26.0 Anion Gap 7 BUN 17 Creatinine 0.63 Estim Creat Clear Calc 120.25 Est GFR (MDRD) Af Amer 136 Est GFR (MDRD) Non-Af 112 BUN/Creatinine Ratio 26.9 H Glucose 104 Calcium 8.8 Code Visit Inpatient E&M: 34983 Disch Hosp
--- NOTE | 2018-01-07 11:08 | DS.PCM_ITS ---
<Yumiko Bhatti - Last Filed: 01/07/18 11:09> Discharge Date and Diagnosis Date of Admission: 01/06/18 Date of Discharge: 01/07/18 - Primary Discharge Diagnosis 1. Acute left lower extremity DVT - Secondary Discharge Diagnosis Chronic Problems (Last Reviewed 05/10/17 @ 15:46 by Jolie Salazar) Hypertension (Chronic) Depression (Chronic) Anxiety (Chronic) Allergic rhinitis (Chronic) ENT referral Cough (Chronic) Encourage Flonase for cough control and PND if symptoms worsen or return, reviewed PFT no further testing at this time. Ordered chest Xray today to follow up on mild restriction seen on PFT. My continue follow up with CT chest, not a priority at this time given lack of chest Xray for in initial eval and actual symptom improvement prior to todays visit. Follow up with Dr Messer in 6 months. Added rescue inhaler. Hospital Course and Treatment Imaging Results: Diagnostic Data Chest CTA 01/06/18 15:56 IMPRESSION: Normal CTA chest examination, without a demonstrated pulmonary embolism or arterial dissection. Electronically Signed: Taras Vivas MD at 16:45 EDT Tel , Service support , ADDENDUM: 01/06/18 1724 Operations: None Procedures: None Summary of Care Provided: The patient is a 37 year old F admitted 01/06/2018 due to left lower extremity pain and swelling. She has a past medical history of anxiety, depression, hypertension, chronic cough, allergic rhinitis. 1. Acute left lower extremity DVT-left lower extremity ultrasound shows extensive DVT from groin to ankle. Received therapeutic Lovenox subcu during admission. Patient reports strong family history of factor V Leiden. She is also on oral contraceptive and reports recent increased immobility due to depression. Patient will likely require lifelong anticoagulation given family history of factor V Leiden in both her mother and aunt. CT of chest negative for PE. Patient prescribed Xarelto at discharge. She will take Xarelto 15 mg twice daily for 21 days followed by Xarelto 20 mg daily which will further be pr escribed by primary care physician. Recommend follow-up with Dr. Sanchez, hematology in 2-4 weeks to establish care. Recommend anti-coagulable panel in 6 months. Follow-up with primary care physician in 1 week. Patient may advance activity as tolerated, encourage ambulation. Stop oral contraceptives until further evaluated by hematology. 2. Mild tachycardia-resolved. CT of chest negative for PE. Suspect secondary to anxiety. Continue home metoprolol regimen. 3. Anxiety/depression-continue home bupropion, Lexapro regimen. Recommend continued outpatient therapy. 4. Hypertension-stable, continue home metoprolol regimen. 5. Chronic cough/allergic rhinitis-follows with pulmonary medicine as outpatient. General: Alert, Oriented x3, Cooperative HEENT: Atraumatic, PERRLA, EOMI, Normocephalic Neck: Supple, No JVD, Negative Carotid Bruits Lungs: Clear to auscultation, Normal air movement Cardiovascular: Regular Rhythm, Normal S1, Normal S2, No murmurs, regular rate Abdomen: Bowel Sounds Present, Soft, Non Tender, Non-Distended Extremities: No clubbing, No cyanosis, Edema - Left lower extremity from ankle to upper thigh Skin: No rashes, No breakdown, - - Left lower extremity redness and warmth Musculoskeletal: Tenderness - Left lower extremity Neurological: Cranial nerves II-XII grossly intact, Neuro grossly intact Psych/Mental Status: Normal affect Patient seen exam prior to discharge. Physical assessment as noted above. Patient is stable for discharge home with the follow-up her conditions as noted above. This patient was seen by RANDY Rogers under the supervision of Dr. Mcmanus. - Physical Exam Vital Signs Temp Pulse Resp BP Pulse Ox 98.5 F 92 18 110/74 99 01/07/18 10:15 01/07/18 10:15 01/07/18 10:15 01/07/18 10:15 01/07/18 10:15 Oxygen Delivery Method Room Air Weight: 137 lb 5.568 oz Body Mass Index (BMI) 20.9 Intake and Output for Last 24 Hours 01/05/18 01/06/18 01/07/18 23:59 23:59 23:59 Intake Total 360 / 360 Balance 360 / 360 Laboratory Tests Past 24 Hrs 01/06/18 01/06/18 01/06/18 15:30 15:30 15:30 WBC 10.7 RBC 3.58 L Hgb 10.6 L Hct 33.6 L MCV 93.9 MCH 29.6 MCHC 31.5 L RDW 11.9 RDW Differential 39.3 Plt Count 580 H MPV 8.8 Immature Gran % (Auto) 0.600 Neut % (Auto) 68.3 Lymph % (Auto) 21.9 [place] % (Auto) 5.9 Eos % (Auto) 3.0 Baso % (Auto) 0.3 Absolute Neuts (auto) 7.3 Absolute Lymphs (auto) 2.34 Total Counted Not Reportable PT 13.3 INR 1.0 Sodium 140 Potassium 4.4 Chloride 106 Carbon Dioxide 28.0 Anion Gap 6 BUN 17 Creatinine 0.63 Estim Creat Clear Calc 120.63 Est GFR (MDRD) Af Amer 137 Est GFR (MDRD) Non-Af 114 BUN/Creatinine Ratio 27.2 H Glucose 88 Calcium 9.1 01/07/18 01/07/18 07:13 07:13 WBC 9.8 RBC 3.32 L Hgb 9.8 L Hct 31.4 L MCV 94.6 MCH 29.5 MCHC 31.2 L RDW 12.0 RDW Differential 39.8 Plt Count 557 H MPV 8.8 Immature Gran % (Auto) Neut % (Auto) Lymph % (Auto) [place] % (Auto) Eos % (Auto) Baso % (Auto) Absolute Neuts (auto) Absolute Lymphs (auto) Total Counted PT INR Sodium 140 Potassium 3.8 Chloride 107 Carbon Dioxide 26.0 Anion Gap 7 BUN 17 Creatinine 0.63 Estim Creat Clear Calc 120.25 Est GFR (MDRD) Af Amer 136 Est GFR (MDRD) Non-Af 112 BUN/Creatinine Ratio 26.9 H Glucose 104 Calcium 8.8 Discharge Diet: No Restrictions Discharge Activity: Return to Normal Activity - As tolerated Call your doctor if you observe: Shortness of breath, Chest pain, Uncontrolled pain Home Medications: Medications to take at Discharge albuterol sulfate HFA 90 mcg/actuation aerosol inhaler 2 puff INHALATION Q6H #8.5 g 02/16/17 bupropion HCl XL 300 mg 24 hr tablet, extended release 300 mg PO QAM 02/16/17 metoprolol tartrate 100 mg tablet 100 mg PO QDAY 02/16/17 Escitalopram Oxalate [Lexapro] 10 mg PO DAILY 12/29/17 Oxycodone [Oxyir] 5 mg PO Q4H PRN PRN 2 Days #10 tablet 01/07/18 Rivaroxaban [Xarelto] 15 mg PO BID #42 tablet 01/07/18 Following Prescrptions Were Given to Patient: Oxycodone [Oxyir] 5 mg PO Q4H PRN PRN 2 Days #10 tablet PRN Reason: Moderate Pain (pain scale 4-5) Rivaroxaban [Xarelto] 15 mg PO BID #42 tablet Primary Care Physician: [facility] Doctor,Out of [Primary Care Provider] - Please follow up with your Primary Care Physician in: Within 1 Week Please Follow Up With: All Sanchez MD - Hematology When: 2-4 weeks to establish Disposition: Home Minutes spent on discharge:: 35 Patient Condition:: Stable Medical Necessity - Tobacco Use Smoking Status: Never smoker Tobacco Use: Non-smoker Meaningful Use Info Meaningful Use Diagnoses (Choose all that apply): VTE - VTE Anticoag overlap given w/in hospital stay or rx'd at dc?: Yes Pt receive overlap for 5 days?: Yes <Reg Mcmanus - Last Filed: 01/07/18 18:59> Discharge Date and Diagnosis - Secondary Discharge Diagnosis Chronic Problems (Last Reviewed 05/10/17 @ 15:46 by Jolie Salazar) Hypertension (Chronic) Depression (Chronic) Anxiety (Chronic) Allergic rhinitis (Chronic) ENT referral Cough (Chronic) Encourage Flonase for cough control and PND if symptoms worsen or return, reviewed PFT no further testing at this time. Ordered chest Xray today to follow up on mild restriction seen on PFT. My continue follow up with CT chest, not a priority at this time given lack of chest Xray for in initial eval and actual symptom improvement prior to todays visit. Follow up with Dr Messer in 6 months. Added rescue inhaler. Hospital Course and Treatment Summary of Care Provided: This patient was seen in conjunction with PRESCHOOL SUBSTITUTE TEACHER, Yumiko. I have independently interviewed and examined the patient and reviewed pertinent history, examination findings, laboratory and plan of management. I have reviewed the note and agree with the documented findings with the few additional points. In brief, patient is admitted for diffuse and severe left lower extremity pain and swelling secondary to extensive DVT from groin to ankle mostly secondary to OC pills. Patient was started on therapeutic Lovenox transition to Xarelto. On DVT dose as mentioned above. Patient was advised to discontinue oral contraceptive and follow with NUCLEAR MEDICINE TECHNICIAN to transition to different OCP or discontinue it altogether. Follow-up recommended with surgical orderly as mentioned above. Need further workup for hypercoagulable disorder after 3- 4 weeks of completion of anticoagulant treatment for DVT Charge medication reconciliation done. Follow-up instructions completed. I have discussed my assessment with PRESCHOOL SUBSTITUTE TEACHERYumiko and orders have been reviewed. [] Subjective: Diffuse left lower extremity swelling, tender from groin to ankle. - Physical Exam General: Alert, Oriented x3, Cooperative HEENT: Atraumatic, PERRLA, EOMI, Normocephalic Neck: Supple, No JVD, Negative Carotid Bruits Lungs: Clear to auscultation, Normal air movement, No rhonchi, No wheeze, No rales Cardiovascular: Regular rate, Regular Rhythm, Normal S2, No murmurs Abdomen: Bowel Sounds Present, Soft, Non Tender, Non-Distended Extremities: Capillary Refill Less than 3 Seconds, Edema, Tenderness - Diffuse edema of left lower extremity Skin: No rashes, No breakdown Musculoskeletal: No Tenderness to Palpation of Joints or Extremities Neurological: Cranial nerves II-XII grossly intact Psych/Mental Status: Normal Affect, Appropriate Vital Signs Temp Pulse Resp BP Pulse Ox 98.5 F 92 18 110/74 99 01/07/18 10:15 01/07/18 10:15 01/07/18 10:15 01/07/18 10:15 01/07/18 10:15 Oxygen Delivery Method Room Air Weight: 137 lb 5.568 oz Body Mass Index (BMI) 20.9 Intake and Output for Last 24 Hours 01/05/18 01/06/18 01/07/18 23:59 23:59 23:59 Intake Total 1110 / 1110 Balance 1110 / 1110 Laboratory Tests Past 24 Hrs 01/07/18 01/07/18 07:13 07:13 WBC 9.8 RBC 3.32 L Hgb 9.8 L Hct 31.4 L MCV 94.6 MCH 29.5 MCHC 31.2 L RDW 12.0 RDW Differential 39.8 Plt Count 557 H MPV 8.8 Sodium 140 Potassium 3.8 Chloride 107 Carbon Dioxide 26.0 Anion Gap 7 BUN 17 Creatinine 0.63 Estim Creat Clear Calc 120.25 Est GFR (MDRD) Af Amer 136 Est GFR (MDRD) Non-Af 112 BUN/Creatinine Ratio 26.9 H Glucose 104 Calcium 8.8 Code Visit Inpatient E&M: 15529 Disch Hosp
--- NOTE | 2018-01-07 11:14 | CASEMGMT ---
Per Hilda TRUCK MECHANIC, pt to be sent home on [employer] and script e-scribed to [facility] previously. Call to [facility] and per tech, pt has no co-pay for [employer] at this time. Pt updated at this time, voices understanding. iLnh ABRAMS CM
== END 2018-01-07 10:42 | disposition home or self-care (01) ==
LOC: ED 15:52 → PCU 17:29
PROVIDERS: Nurse Practitioner Family; Admitting Provider Student in an Organized Health Care Education/Training Program; Emergency Provider Emergency Medicine; Visit Provider Internal Medicine
DX: I82.412 Acute embolism and thrombosis of left femoral vein (principal); I82.432 Acute embolism and thrombosis of left popliteal vein; I82.890 Acute embolism and thrombosis of other specified veins; I82.442 Acute embolism and thrombosis of left tibial vein; Z79.899 Other long term (current) drug therapy; I10 Essential (primary) hypertension; F41.9 Anxiety disorder, unspecified; F32.9 Major depressive disorder, single episode, unspecified; Z83.2 Family history of diseases of the blood and blood-forming organs and certain disorders involving the immune mechanism; J30.9 Allergic rhinitis, unspecified
CPT/HCPCS: 36415; 71275; 80048; 85025; 85027; 85610; 93005; 93971; 96372; 99218; 99283; Q9967; A4216; G0378

== ENCOUNTER → 2018-01-11 14:02 | Outpatient (CLI) | payer MEDICAID, SELFPAY | PROVIDERS: Family Provider Family Medicine; PCP Family Medicine; Visit Provider Family Medicine | DX: I82.409 Acute embolism and thrombosis of unspecified deep veins of unspecified lower extremity (principal) | CPT/HCPCS: 36415; 81241 ==

== ENCOUNTER → 2018-11-17 14:03 | Outpatient (CLI) | payer MEDICAID, SELFPAY ==
[2018-05-18 11:36] VITALS: BMI 22.4
[2018-11-17 14:06] LABS: Bacteria 0 SEEN /hpf (None Seen); Mucous, Urine 0 SEEN /hpf (<or=2+); Red Blood Cells-Urine 0 SEEN /hpf (0-5); White Blood Cells 0 SEEN /hpf (0-5)
[2018-11-17 15:49] LABS: Absolute Lymphocyte Count 2.47 X10^3/uL (0.83-4.51); Absolute Neutrophil Count 2.5 X10^3/uL (2.0-7.7); Basophil# 0.04 X10^3/uL; Basophil% 0.7 % (0-1); Eosinophil# 0.07 X10^3/uL; Eosinophils% 1.2 % (0-5); Hematocrit 41.3 % (37-47); Hemoglobin 13.4 g/dL (12.0-15.0); Lymphocyte # 2.47 X10^3/ul (4.0); Lymphocyte % 43.8 % (19-41); Mean Corp Hgb Conc 32.4 g/dL (32-36); Mean Corpuscular Hgb 28.6 pg (27.0-32.0); Mean Corpuscular Volume 88.1 fL (81-99); Mean Platelet Vol. 10.2 fl (6.2-12.0); Monocyte# 0.52 X10^3/uL; Monocyte% 9.2 % (0-10); NRBC Flagged by Analyzer 0 % (0-5); Neutrophil # 2.53 X10^3/uL (2.7-7.7); Neutrophil % 44.9 % (47-70); Platelet Count 286 K/mm3 (150-450); RBC Distribution Width SD 45.3 fl (35.1-43.9); Red Blood Count 4.69 M/mm3 (4.2-5.4); White Blood Count 5.6 K/mm3 (4.4-11.0)
[2018-11-17 15:53] LABS: Color, Urine Yellow (Yellow); Glucose, Dipstick Normal (Normal); Ketone-Dipstick 5 mg/dl (Negative); Leukocyte Esterase-Dipstick Negative /ul (Negative); Nitrite-Dipstick Negative (Negative); Occult Blood-Urine Negative /ul (Negative); Protein-Dipstick Negative (Negative); Urine Bilirubin Dipstick Negative (Negative); Urine Clarity Clear (Clear); Urine Urobilinogen Normal (Normal)
[2018-11-17 16:22] LABS: Amphetamine Urine VISTA NEGATIVE (<1000 ng/mL); Barbiturate Urine VISTA NEGATIVE (< 200 ng/mL); Benzodiazepine Urine VISTA NEGATIVE (< 200 ng/mL); Cocaine Urine VISTA NEGATIVE (< 300 ng/mL); Ecstacy Urine VISTA NEGATIVE (< 500 ng/mL); Methadone Urine VISTA NEGATIVE (< 300 ng/mL); PCP Urine VISTA NEGATIVE (< 25 ng/mL); THC Urine VISTA NEGATIVE (< 50 ng/mL); Vista UDS pH Range 6
[2018-11-17 16:31] LABS: Squamous Epithelial Cells - UA 0-5 SEEN /hpf (5-10)
[2018-11-17 16:37] LABS: ALB/GLOB Ratio 1.1 RATIO (0.9-2.4); AST(SGOT) 19 U/L (15-37); Alanine Aminotransfer ALT/SGPT 17 U/L (13-56); Albumin, Serum 4.1 g/dL (3.2-5.0); Alkaline Phosphatase 75 U/L (45-117); Anion Gap 9 (5-15); BUN 10 mg/dL (7-18); BUN/Creat Ratio 13.6 RATIO (10-20); Calcium,Total 8.9 mg/dL (8.5-10.1); Chloride 109 mmol/L (98-107); Creatinine, Serum 0.73 mg/dL (0.55-1.02); EST Glomerular Filtration Rate 94 mL/min (>60); Est Glom Filt Rate - Afr Amer 114 mL/min (>60); Globulin 3.6 g/dL (2.2-4.2); Glucose 81 mg/dL (74-106); Magnesium 2.4 mg/dL (1.6-2.6); Potassium 3.9 mmol/L (3.5-5.1); Protein, Total 7.7 g/dL (6.4-8.2); Sodium Level 141 mmol/L (136-145); Thyroid Stim Hormone (TSH) 2.19 uIU/mL (0.358-3.74)
== END ==
PROVIDERS: Family Provider Family Medicine; PCP Family Medicine; Referring Provider Family Medicine; Visit Provider Family Medicine
DX: I10 Essential (primary) hypertension (principal)
CPT/HCPCS: 36415; 80053; 80307; 81001; 83735; 84443; 85025

== ENCOUNTER 2019-01-11 15:53 | Emergency (ER) | payer MEDICAID, SELFPAY ==
[2018-05-18 11:36] VITALS: BMI 22.4
[2019-01-11 15:55] VITALS: BP 157/97; PULSE 116; PULSE 120; RESP 18; RESP 19; TEMP 36.8; O2SAT 97; O2SAT 98; BMI 22.5
--- NOTE | 2019-01-11 17:22 | EKG12_ITS ---
Test Reason : BACK Blood Pressure : / mmHG Vent. Rate : 092 BPM Atrial Rate : 092 BPM P-R Int : 140 ms QRS Dur : 070 ms QT Int : 346 ms P-R-T Axes : 045 -06 011 degrees QTc Int : 427 ms Normal sinus rhythm Normal ECG Confirmed by WES KOLB, CHRISTIE ([id number]), desk editor RIA CORONADO ([id number]) on 01/16/2019 8:31:35 AM Referred By: MARIANA Confirmed By:MOISÉS HARVEY MD
--- NOTE | 2019-01-11 17:23 | CT_ITS ---
STUDY: CTA CHEST REASON FOR EXAM: Female, 38 years old. UPPER LT BACK PAIN THAT STARTED WHILE SLEEPING HX:PE RADIATION DOSAGE (If Supplied By Facility): CTDIvol = ( 7.45 ) mGy, DLP = ( 244.73 ) mGycm TECHNIQUE: The examination was performed with the intravenous administration of IV 75mL [id number]-[id number] 75ML. Post-processing of the angiographic images was performed, with multiplanar reformation and 3D reconstruction. Individualized dose optimization techniques were used for this CT. COMPARISON: Chest CTA dated January 06, 2018 FINDINGS: Normal enhancement of the main pulmonary artery and right and left pulmonary arteries. Normal enhancement of the bilateral peripheral pulmonary arteries. There is no demonstrated pulmonary embolism. Normal thoracic aorta and visualized great vessels. There is no demonstrated aortic dissection. Normal heart and pericardium. Normal mediastinum. Normal hilar regions. Normal visualized trachea and bronchi. The lungs are well expanded. Normal pulmonary parenchyma. No consolidation or significant pleural effusion. No pneumothorax or pleural effusion. Normal pleura. Normal chest wall structures. Normal osseous structures. Normal visualized upper abdomen. CT/CTA Chest W/WO Contrast IMPRESSION: No demonstrated pulmonary embolism or arterial dissection. Electronically Signed: Iván Montero MD at 18:48 EDT , Service support ,
--- NOTE | 2019-01-11 17:32 | ED.VISSUMM ---
- ER Visit Summary Date of Service: 01/11/19 Chief Complaint: Back pain History of Present Illness: The patient is a 38 F presenting with back pain. She states this started 6 days ago. States she initially she thought she slept wrong. She has pain in her upper back which is worsened with movement and different positions. She does not recall specific injury. She was concerned because she had back pain with a pulmonary embolism one year ago. She stopped taking Xarelto in March. Denies chest pain or shortness of breath. Denies fever. She has taken no medications at home. No recent travel or recent surgery. Denies other complaints. Physical Examination: Vitals are stable. Heart rate 120. Patient is afebrile. Alert no acute distress. HEENT exam is unremarkable. Neck is supple. Lungs are clear and equal bilaterally. Heart is regular tachycardic Abdomen is soft nontender nondistended. Back: Nontender Extremities are unremarkable. Skin is warm and dry. No focal neurologic deficit. Normal strength and sensation Remainder of exam is unremarkable. Emergency Department Course and Treatment: EKG is sinus rate of 92 with no acute ischemic changes. CBC, chemistries unremarkable. Troponin is negative. hCG negative. CTA chest shows no demonstrated pulmonary embolism or arterial dissection. Patient has no tenderness to palpation but states in different positions she can reproduce her pain. She is given prescription for Naprosyn and Flexeril. Advised to follow up with her primary care physician. Advised return to ED for worsening complaints. Disposition: Discharge home Impression: Thoracic strain This note was generated with [employer] dictation software. It may contain incorrect words, spelling, and punctuation that were not noted in review of the chart prior to signing ED Disposition - Plan for ED Patient: Instructions: Back Sprain/Strain Prescriptions: cycloBENZAPRine HCl [Flexeril] 10 mg PO TID PRN #20 tab PRN Reason: Muscle Spasm Prescription Printed Naproxen [Naprosyn] 500 mg PO BID PRN #20 tab Prescription Printed Referrals: Maged Pickering MD [Primary Care Provider] -
[2019-01-11] MEDS: 0.9% Normal Saline 1,000 ML 999 ML IV (17:49)
[2019-01-11 17:50] VITALS: PULSE 97; RESP 18
[2019-01-11 17:52] LABS: Absolute Lymphocyte Count 2.22 X10^3/uL (0.83-4.51); Absolute Neutrophil Count 7.3 X10^3/uL (2.0-7.7); Basophil# 0.02 X10^3/uL; Basophil% 0.2 % (0-1); Eosinophil# 0.05 X10^3/uL; Eosinophils% 0.5 % (0-5); Hematocrit 43.4 % (37-47); Hemoglobin 14.2 g/dL (12.0-15.0); Lymphocyte # 2.22 X10^3/ul (4.0); Lymphocyte % 21.5 % (19-41); Mean Corp Hgb Conc 32.7 g/dL (32-36); Mean Corpuscular Hgb 29.4 pg (27.0-32.0); Mean Corpuscular Volume 89.9 fL (81-99); Mean Platelet Vol. 9.7 fl (6.2-12.0); Monocyte# 0.71 X10^3/uL; Monocyte% 6.9 % (0-10); NRBC Flagged by Analyzer 0 % (0-5); Neutrophil # 7.28 X10^3/uL (2.7-7.7); Neutrophil % 70.6 % (47-70); Platelet Count 307 K/mm3 (150-450); RBC Distribution Width CV 13.5 % (11.6-14.6); RBC Distribution Width SD 44.4 fl (35.1-43.9); Red Blood Count 4.83 M/mm3 (4.2-5.4); White Blood Count 10.3 K/mm3 (4.4-11.0)
[2019-01-11 18:16] LABS: Anion Gap 8 (5-15); BUN 10 mg/dL (7-18); BUN/Creat Ratio 15.6 RATIO (10-20); Calcium,Total 9.7 mg/dL (8.5-10.1); Chloride 105 mmol/L (98-107); Creatinine, Serum 0.64 mg/dL (0.55-1.02); EST Glomerular Filtration Rate 109 mL/min (>60); Est Glom Filt Rate - Afr Amer 132 mL/min (>60); Estimated Creatinine Clearance 120.23 ml/min; Glucose 90 mg/dL (74-106); Potassium 4.1 mmol/L (3.5-5.1); Sodium Level 138 mmol/L (136-145)
[2019-01-11 18:19] LABS: Internal QC Validated? YES +Cl - CLEAR BKGD; Pregnancy, Serum, hCG Quali. NEGATIVE Negative
--- NOTE | 2019-01-11 19:22 | ED.DEP ---
ED Disposition - Plan for ED Patient: Instructions: Back Sprain/Strain Prescriptions: cycloBENZAPRine HCl [Flexeril] 10 mg PO TID PRN #20 tablet PRN Reason: Muscle Spasm Naproxen [Naprosyn] 500 mg PO BID PRN #20 tablet Referrals: Maged Pickering MD [Primary Care Provider] -
[2019-01-11 19:39] VITALS: TEMP 37.1
== END 2019-01-11 19:40 | disposition home or self-care (01) ==
LOC: ED 17:16
PROVIDERS: Emergency Provider Emergency Medicine; Family Provider Family Medicine; PCP Family Medicine
DX: S29.012A Strain of muscle and tendon of back wall of thorax, initial encounter (principal); R05 Cough; X58.XXXA Exposure to other specified factors, initial encounter; Y93.9 Activity, unspecified; Y92.9 Unspecified place or not applicable; F43.10 Post-traumatic stress disorder, unspecified; Z86.711 Personal history of pulmonary embolism; Z72.0 Tobacco use
CPT/HCPCS: 71275; 80048; 84484; 84703; 85025; 93005; 99285; Q9967; A4216

== ENCOUNTER 2021-04-07 10:03 | Outpatient (CLI) | payer MEDICAID, SELFPAY ==
[2021-04-07 10:31] LABS: Hematocrit 39.2 % (37-47); Hemoglobin 13.1 g/dL (12.0-15.0); Mean Corp Hgb Conc 33.4 g/dL (32-36); Mean Corpuscular Hgb 30.5 pg (27.0-32.0); Mean Corpuscular Volume 91.4 fL (81-99); Mean Platelet Vol. 9.2 fl (6.2-12.0); Platelet Count 265 K/mm3 (150-450); RBC Distribution Width CV 11.9 % (11.6-14.6); Red Blood Count 4.29 M/mm3 (4.2-5.4); White Blood Count 7.4 K/mm3 (4.4-11.0)
[2021-04-07 10:34] LABS: Color, Urine Yellow (Yellow); Glucose, Dipstick Normal (Normal); Ketone-Dipstick 5 mg/dl (Negative); Leukocyte Esterase-Dipstick 25 /ul (Negative); Nitrite-Dipstick Negative (Negative); Occult Blood-Urine Negative /ul (Negative); Protein-Dipstick 15 mg/dl (Negative); Urine Bilirubin Dipstick Negative (Negative); Urine Clarity Sl. Cloudy (Clear); Urine Urobilinogen Normal (Normal)
[2021-04-07 10:55] LABS: ALB/GLOB Ratio 1.2 RATIO (0.9-2.4); AST(SGOT) 14 U/L (15-37); Alanine Aminotransfer ALT/SGPT 19 U/L (13-56); Albumin, Serum 4.3 g/dL (3.2-5.0); Alkaline Phosphatase 61 U/L (45-117); Anion Gap 8 (5-15); BUN 9 mg/dL (7-18); BUN/Creat Ratio 13.9 RATIO (10-20); Calcium,Total 9.4 mg/dL (8.5-10.1); Chloride 109 mmol/L (98-107); Cholesterol 201 mg/dL (200); Creatinine, Serum 0.65 mg/dL (0.55-1.02); EST Glomerular Filtration Rate 107 mL/min (>60); Est Glom Filt Rate - Afr Amer 130 mL/min (>60); Globulin 3.7 g/dL (2.2-4.2); Glucose 94 mg/dL (74-106); High Density Lipoprotein 54 mg/dL; Potassium 3.7 mmol/L (3.5-5.1); Sodium Level 141 mmol/L (136-145); Thyroid Stim Hormone (TSH) 2.06 uIU/mL (0.358-3.74); Triglycerides 186 mg/dL; Very Low Density Lipoprotein 37 mg/dL (5-40)
== END 2021-04-07 23:59 | disposition home or self-care (01) ==
PROVIDERS: PCP Family Medicine; Referring Provider Internal Medicine; Visit Provider Internal Medicine
DX: I10 Essential (primary) hypertension (principal); R53.83 Other fatigue
CPT/HCPCS: 36415; 80053; 80061; 81002; 84443; 85027

== ENCOUNTER → 2022-11-09 | Outpatient (CLI) | payer MEDICAID, SELFPAY ==
--- NOTE | 2022-11-09 15:02 | BI_ITS ---
MAMMOGRAPHY - BILATERAL SCREENING REASON FOR EXAM: Female, 42 years old. Routine annual screening examination. PERTINENT HISTORY: Non-contributory. TECHNIQUE: Digital bilateral breast remedios (3D mammographic acquisition) in the CC and MLO projections. 2-D mediolateral oblique (MLO) and craniocaudad (CC) views of both breasts were obtained. CAD: Full Field Digital Mammography with Computer Added Detection was performed. COMPARISON: None. Baseline examination. FINDINGS: Breast Composition: The breasts are heterogeneously dense, which may obscure small masses. There are no dominant masses or suspicious calcifications. No other significant abnormalities are identified. BI/SCRN MAMM (CAD)W/REMEDIOS BILAT IMPRESSION: Negative screening mammogram. Yearly followup mammogram recommended. (A) ASSESSMENT CATEGORY: BIRADS Category 1: Negative. A letter regarding these results will be sent to the patient by the facility within 30 days. Approximately 10% of breast cancers are not detected by mammography. A normal mammogram should not delay biopsy of a clinically suspicious abnormality. [id number] Electronically Signed: Hari Diamond MD at 15:51 EDT ,
== END | disposition home or self-care (01) ==
PROVIDERS: PCP Internal Medicine; Referring Provider Internal Medicine; Visit Provider Internal Medicine
DX: Z12.31 Encounter for screening mammogram for malignant neoplasm of breast (principal)
CPT/HCPCS: 77063; 77067

== ENCOUNTER → 2022-11-11 | Outpatient (CLI) | payer MEDICAID, SELFPAY ==
[2022-11-11 08:45] LABS: Hemoglobin 12.7 g/dL (12.0-15.0); Mean Corp Hgb Conc 31.8 g/dL (32-36); Mean Corpuscular Hgb 29.1 pg (27.0-32.0); Mean Corpuscular Volume 91.7 fL (81-99); Mean Platelet Vol. 9.1 fl (6.2-12.0); Platelet Count 266 K/mm3 (150-450); RBC Distribution Width CV 12.2 % (11.6-14.6); RBC Distribution Width SD 41.1 fl (35.1-43.9); Red Blood Count 4.36 M/mm3 (4.2-5.4); White Blood Count 5.4 K/mm3 (4.4-11.0)
[2022-11-11 08:48] LABS: Color, Urine Yellow (Yellow); Glucose, Dipstick Normal (Normal); Ketone-Dipstick Negative (Negative); Leukocyte Esterase-Dipstick 25 /ul (Negative); Nitrite-Dipstick Negative (Negative); Occult Blood-Urine Negative /ul (Negative); Protein-Dipstick Negative (Negative); Specific Gravity, Urine 1.015 (1.002-1.030); Urine Bilirubin Dipstick Negative (Negative); Urine Clarity Clear (Clear); Urine Urobilinogen Normal (Normal); Urine pH 6.5 (5.0 - 8.0)
[2022-11-11 09:12] LABS: ALB/GLOB Ratio 1.3 RATIO (0.9-2.4); AST(SGOT) 12 U/L (15-37); Alanine Aminotransfer ALT/SGPT 17 U/L (13-56); Albumin, Serum 4.1 g/dL (3.2-5.0); Alkaline Phosphatase 53 U/L (45-117); Anion Gap 4 (5-15); BUN 10 mg/dL (7-18); BUN/Creat Ratio 14.3 RATIO (10-20); Calcium,Total 8.7 mg/dL (8.5-10.1); Chloride 110 mmol/L (98-107); Cholesterol 150 mg/dL (200); EST Glomerular Filtration Rate 98 mL/min (>60); Est Glom Filt Rate - Afr Amer 118 mL/min (>60); Ferritin 11 ng/mL (8-252); Globulin 3.2 g/dL (2.2-4.2); Glucose 97 mg/dL (74-106); High Density Lipoprotein 80 mg/dL; Iron 135 ug/dL (50-170); Iron Binding Capacity,Total 405 ug/dL (250-450); PERCENT IRON SATURATION 33.3 % (15.0-55.0); Potassium 4.3 mmol/L (3.5-5.1); Protein, Total 7.3 g/dL (6.4-8.2); Sodium Level 140 mmol/L (136-145); Triglycerides 88 mg/dL; Very Low Density Lipoprotein 18 mg/dL (5-40)
[2022-11-11 09:20] LABS: Vitamin B12 421 pg/mL (211-911); Vitamin D,25 Hydroxy 33.2 ng/mL
== END | disposition home or self-care (01) ==
LOC: PAVLAB 08:26
PROVIDERS: PCP Internal Medicine; Referring Provider Internal Medicine; Visit Provider Internal Medicine
DX: E55.9 Vitamin D deficiency, unspecified (principal); R53.83 Other fatigue; Z82.49 Family history of ischemic heart disease and other diseases of the circulatory system
CPT/HCPCS: 36415; 80053; 80061; 81002; 82306; 82607; 82728; 83540; 83550; 84443; 85027

== ENCOUNTER → 2022-11-23 | Outpatient (CLI) | payer MEDICAID, SELFPAY ==
--- NOTE | 2022-11-23 14:01 | VDLE_ITS ---
Reason For Study: LLE Swelling RIGHT LEFT CFV is compressible, spontaneous, phasic, GSV is normal. competent and demonstrates normal CFV is compressible, spontaneous, phasic, augmentation. competent, and demonstrates normal Procedure augmentation. This is a venous duplex using B-mode, color FV is partially compressible, spontaneous, flow and spectral Doppler. phasic, competent and demonstrates normal Exam performed in department. augmentation. There are hyperechoic The exam was diagnostic. intraluminal echoes noted. These findings are consistent with chronic DVT. POP V is compressible, spontaneous, phasic, competent and demonstrates normal augmentation. T/P Trunk is compressible. PTV is compressible. LT PerV is compressible. VL/Venous Duplex US, Unilateral Interpretation Summary Deep veins of the left lower extremity are patent segmentally. There is no evid ence of left lower extremity acute deep vein thrombosis. Valvular competence appears intact within the proximal deep venous system on the left . The left great saphenous vein appears patent and co mpressible segmentally. Chronic venous changes are noted in the left femoral vein, which d emonstrates partial compressibility and intraluminal echogenicity. The right common femoral vein is patent and compressible. Ordering Physician: JAYDON GRIMES Referring Physician: JAYDON GRIMES Performed By: Priyank Savage, RVT
== END | disposition home or self-care (01) ==
PROVIDERS: PCP Internal Medicine; Referring Provider Internal Medicine; Visit Provider Internal Medicine
DX: M79.605 Pain in left leg (principal); R22.42 Localized swelling, mass and lump, left lower limb; Z86.718 Personal history of other venous thrombosis and embolism
CPT/HCPCS: 93971